=== PATIENT | male | born 1980 | race Caucasian/White ===

== ENCOUNTER 2017-03-28 08:38 | Emergency (ER) | payer OTHER, BC ==
[~2017-03-28] VITALS: Ht 188 cm; Wt 124.1 kg
[~2017-03-28 08:38] MED LIST: ALLEGRA-D 241 TABLET PO; HYDROCODON-ACE1 EAC7 PO; MOTRIN800 MG PO
[2017-03-28] MEDS ORDERED: METFORMIN HCL1000 MG PO (08:52)
[2017-03-28] MEDS ORDERED: ROSUVASTATIN CA10 MG PO (08:53)
[2017-03-28] MEDS ORDERED: LISINOPRIL-HCT1 EAC3 PO (08:53)
[2017-03-28] MEDS ORDERED: BUTALB-APAP-CA1 EACH PO (08:53)
[2017-03-28] MEDS ORDERED: TIZANIDINE HCL6 MG PO (08:54)
[2017-03-28] MEDS ORDERED: SERTRALINE HCL25 MG PO (08:54)
[2017-03-28 09:33] LABS: POINT-OF-CARE METER ID UU13113747
[2017-03-28] MEDS ORDERED: FLEXERIL10 MG PO (10:42)
[2017-03-28] MEDS ORDERED: NORCO 5/3251 TABLET PO (10:42)
[2017-03-28] MEDS ORDERED: NAPROSYN500 MG PO (10:42)
[2017-03-28 11:02] VITALS: BP 157/109
== END 2017-03-28 11:03 | disposition home or self-care (01) ==
LOC: EME 08:38
DX: S16.1XXA Strain of muscle, fascia and tendon at neck level, initial encounter (principal); S33.5XXA Sprain of ligaments of lumbar spine, initial encounter; S29.012A Strain of muscle and tendon of back wall of thorax, initial encounter; V43.52XA Car driver injured in collision with other type car in traffic accident, initial encounter; I10 Essential (primary) hypertension; E78.5 Hyperlipidemia, unspecified; E11.9 Type 2 diabetes mellitus without complications; Z79.84 Long term (current) use of oral hypoglycemic drugs; Z72.0 Tobacco use
CPT/HCPCS: 72070; 72100; 72125; 82948; 99281; 99282

== ENCOUNTER 2017-08-19 14:08 | Emergency (ER) | payer BC ==
[~2017-08-19] VITALS: Ht 188 cm; Wt 122.2 kg
[~2017-08-19 14:08] MED LIST changes: +BUTALB-APAP-CA1 EACH PO; +FLEXERIL10 MG PO; +LISINOPRIL-HCT1 EAC3 PO; +METFORMIN HCL1000 MG PO; +NAPROSYN500 MG PO; +NORCO 5/3251 TABLET PO; +ROSUVASTATIN CA10 MG PO; +SERTRALINE HCL25 MG PO; +TIZANIDINE HCL6 MG PO
[2017-08-19 15:55] LABS: BASOPHIL (%) 0.5 % (0-1); EOSINOPHIL (%) 4.4 % (0-5); EOSINOPHIL COUNT 0.4 K/uL (0-0.3); HEMATOCRIT 45.2 % (38.0-50.0); HEMOGLOBIN 15.8 G/DL (12.5-16.6); IMMATURE GRANULOCYTE (%) 0.3 % (0.0-0.7); LYMPHOCYTE (%) 29.3 % (15-42); LYMPHOCYTE COUNT 2.6 K/uL (1.0-2.8); MCH 30.5 PG (29.0-34.0); MCV 87.3 FL (86-99); MONOCYTE (%) 5.8 % (3-12); MONOCYTE COUNT 0.5 K/uL (0-0.8); NEUTROPHIL (%) 59.7 % (45-76); NEUTROPHIL COUNT 5.3 K/uL (1.8-6.4); PLATELET COUNT 214 K/uL (156-360); RBC DIS.WIDTH-CV 12.1 % (11.8-14.6); RED BLOOD COUNT 5.18 M/uL (4.00-5.50); WHITE BLOOD COUNT 8.8 K/uL (4.1-10.2)
[2017-08-19 16:11] LABS: CHLORIDE 105 mEq/L (99-109); POTASSIUM 3.9 mEq/L (3.7-5.4); SODIUM 139 mEq/L (136-147)
[2017-08-19 16:13] LABS: GLUCOSE 75 mg/dL (70-99)
[2017-08-19 16:14] LABS: APPEARANCE TURBID ((CLEAR)); BILIRUBIN NEGATIVE; BLOOD LARGE; COLOR AMBER ((YELLOW)); GLUCOSE (STRIP) NEGATIVE; KETONES NEGATIVE; LEUKOCYTES NEGATIVE; NITRITE NEGATIVE; PROTEIN (STRIP) 100; SPECIFIC GRAVITY 1.024 (1.000-1.030); UROBILINOGEN 0.2 MG/DL (0.2-1.0)
[2017-08-19 16:17] LABS: CREATININE 0.8 mg/dL (0.6-1.3); GFR ESTIMATE (CALCULATED) > 59 mL/min/ (58.99-99999)
[2017-08-19 16:18] LABS: UREA NITROGEN (BUN) 18 mg/dL (9-23)
[2017-08-19 17:03] LABS: RED BLOOD CELLS 20-30 /HPF (0-5); WHITE BLOOD CELLS 0-5 /HPF (0-5)
[2017-08-19 17:04] LABS: AMORPHOUS URATES CRYSTALS 4+; BACTERIA RARE /HPF; EPITHELIAL CELLS NONE SEEN /HPF; MUCUS NONE SEEN /LPF; UCUL ADDED? NO
[2017-08-19 22:09] LABS: CREATINE KINASE 615 IU/L (1-294)
[2017-08-19] MEDS ORDERED: NORCO 7.5/321 TABLET PO (22:49)
[2017-08-19 23:26] VITALS: BP 138/85
== END 2017-08-20 00:17 | disposition home or self-care (01) ==
LOC: EME 14:08
PROVIDERS: Physician Assistant Medical
DX: S76.311A Strain of muscle, fascia and tendon of the posterior muscle group at thigh level, right thigh, initial encounter (principal); R74.8 Abnormal levels of other serum enzymes; R31.9 Hematuria, unspecified; I10 Essential (primary) hypertension; E78.5 Hyperlipidemia, unspecified; E11.9 Type 2 diabetes mellitus without complications; W17.81XA Fall down embankment (hill), initial encounter; W01.0XXA Fall on same level from slipping, tripping and stumbling without subsequent striking against object, initial encounter; F17.200 Nicotine dependence, unspecified, uncomplicated; Z79.84 Long term (current) use of oral hypoglycemic drugs
CPT/HCPCS: 80048; 81003; 82550; 85025; 99281; 99285; J3010; J7030

== ENCOUNTER → 2017-08-30 | Outpatient (CLI) | payer BC ==
[~2017-08-30] MED LIST changes: +NORCO 7.5/321 TABLET PO; +PERCOCET 5/31 TABLET PO; +ZOFRAN ODT4 MG PO
== END | disposition home or self-care (01) ==
LOC: CDC 12:04
DX: Z01.810 Encounter for preprocedural cardiovascular examination (principal)
CPT/HCPCS: 93000

== ENCOUNTER 2017-08-31 12:51 | Emergency (ER) | payer BC ==
[~2017-08-31] VITALS: Ht 188 cm; Wt 119.2 kg
[~2017-08-31 12:51] MED LIST changes: -PERCOCET 5/31 TABLET PO; -ZOFRAN ODT4 MG PO
[2017-08-31 13:21] LABS: APPEARANCE CLEAR ((CLEAR)); BILIRUBIN NEGATIVE; BLOOD LARGE; COLOR YELLOW ((YELLOW)); GLUCOSE (STRIP) NEGATIVE; KETONES NEGATIVE; LEUKOCYTES NEGATIVE; NITRITE NEGATIVE; PROTEIN (STRIP) 30; SPECIFIC GRAVITY 1.027 (1.000-1.030); UROBILINOGEN 0.2 MG/DL (0.2-1.0)
[2017-08-31 13:26] LABS: HEMATOCRIT 46.1 % (38.0-50.0); HEMOGLOBIN 16.1 G/DL (12.5-16.6); MCH 30.2 PG (29.0-34.0); MCHC 34.9 G/DL (30.0-36.0); MCV 86.5 FL (86-99); PLATELET COUNT 229 K/uL (156-360); RBC DIS.WIDTH-CV 12.2 % (11.8-14.6); RBC DIS.WIDTH-SD 38.5 % (39-53); RED BLOOD COUNT 5.33 M/uL (4.00-5.50); WHITE BLOOD COUNT 12.5 K/uL (4.1-10.2)
[2017-08-31 13:27] LABS: BACTERIA NONE SEEN /HPF; EPITHELIAL CELLS NONE SEEN /HPF; HYALINE CASTS 0-5 /LPF; MUCUS TRACE /LPF; RED BLOOD CELLS 30-40 /HPF (0-5); WHITE BLOOD CELLS 0-5 /HPF (0-5)
[2017-08-31 13:35] LABS: CHLORIDE 106 mEq/L (99-109); POTASSIUM 4.1 mEq/L (3.7-5.4); SODIUM 140 mEq/L (136-147)
[2017-08-31 13:37] LABS: GLUCOSE 118 mg/dL (70-99)
[2017-08-31 13:41] LABS: GFR ESTIMATE (CALCULATED) > 59 mL/min/ (58.99-99999)
[2017-08-31 13:42] LABS: UREA NITROGEN (BUN) 14 mg/dL (9-23)
[2017-08-31] MEDS ORDERED: ZOFRAN ODT4 MG PO (17:02)
[2017-08-31] MEDS ORDERED: PERCOCET 5/31 TABLET PO (17:02)
[2017-08-31 17:24] VITALS: BP 115/77
== END 2017-08-31 17:25 | disposition home or self-care (01) ==
LOC: EME 12:51
PROVIDERS: Emergency Medicine
DX: N20.2 Calculus of kidney with calculus of ureter (principal); I10 Essential (primary) hypertension; E78.5 Hyperlipidemia, unspecified; E11.9 Type 2 diabetes mellitus without complications; Z79.84 Long term (current) use of oral hypoglycemic drugs; Z72.0 Tobacco use
CPT/HCPCS: 80048; 81003; 85027; 99281; 99285; J1885; J2270; J2405; J3010; J7030

== ENCOUNTER 2018-03-06 15:19 | Emergency (ER) | payer BC ==
[~2018-03-06] VITALS: Ht 188 cm; Wt 112.5 kg
[~2018-03-06 15:19] MED LIST changes: +PERCOCET 5/31 TABLET PO; +ZOFRAN ODT4 MG PO
[2018-03-06] MEDS ORDERED: FLEXERIL10 MG PO (20:00)
[2018-03-06 20:21] VITALS: BP 125/85
== END 2018-03-06 20:21 | disposition home or self-care (01) ==
LOC: EME 15:19
DX: S06.0X0A Concussion without loss of consciousness, initial encounter (principal); W10.9XXA Fall (on) (from) unspecified stairs and steps, initial encounter; M54.5 Low back pain; I10 Essential (primary) hypertension; E78.5 Hyperlipidemia, unspecified; E11.9 Type 2 diabetes mellitus without complications; F41.9 Anxiety disorder, unspecified; F17.200 Nicotine dependence, unspecified, uncomplicated; Z79.84 Long term (current) use of oral hypoglycemic drugs
CPT/HCPCS: 70450; 71046; 93005; 99281; 99285; J1885